=== PATIENT | male | born 1990 | race African-American/Black ===

== ENCOUNTER 2017-03-16 16:42 | Emergency (ER) | payer OTHER ==
[2017-03-16 17:15] VITALS: BP 121/66
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
[2017-03-16] MEDS ORDERED: IBUPROFEN 800 MG TABLET. PO ONE (17:45)
--- NOTE | 2017-03-16 18:58 | RAD ---
PQRS Compliance Statement: One or more of the following individualized dose reduction techniques were utilized for this examination: 1. Automated exposure control 2. Adjustment of the mA and/or kV according to patient size 3. Use of iterative reconstruction technique CT maxillofacial without contrast March 16, 2017 at 6:22 PM INDICATION: Right-sided facial pain, trauma COMPARISON: None TECHNIQUE: Multiple axial CT images of the maxillofacial structures are provided without contrast. Coronal and sagittal reformats are provided. FINDINGS: Evaluation is markedly limited by motion artifact. Visualized portions of the brain parenchyma appear normal. Visualized orbits are normal. Globes are maintained spherical contour. Extraocular muscles are intact. Mild mucosal thickening is noted in the ethmoid air cells. There is moderate mucosal thickening of the right maxillary sinus and mild mucosal thickening of the left maxillary sinus. A small mucus retention cyst is identified in the right sphenoid sinus. Evaluation for fractures is limited. No gross fracture is identified involving the right maxilla. Mandible and upper cervical spine are limited in evaluation. Dentition appear normal. No maxillary or mandibular fracture is identified. The zygoma is intact. Pterygoid plates are intact. Temporomandibular joints are well aligned. IMPRESSION: 1. Evaluation is limited by motion artifact. 2. No definite fracture is identified. 3. Mild to moderate sinus mucosal disease. Recommend correlation with signs and symptoms of sinusitis. Electronically signed by: Leta Engel MD (03/16/2017 6:55 PM) [facility]
--- NOTE | 2017-03-16 19:00 | RAD ---
Right Achilles tendon ultrasound 03/16/2017 at 6:08 PM INDICATION: Achilles tendon pain. COMPARISON: None available TECHNIQUE: Sonographic imaging of the Achilles tendon is performed. FINDINGS: The teres tendon demonstrates normal sonographic echotexture. There is no tear of the Achilles tendon identified. No peritendinous fluid collection. IMPRESSION: Normal appearance of the right Achilles tendon. Electronically signed by: Leta Engel MD (03/16/2017 6:56 PM) [facility]
== END 2017-03-16 19:37 | disposition home or self-care (01) ==
LOC: ER 16:42 → EEVIPCON 16:42 → ER 19:37
DX: M25.571 Pain in right ankle and joints of right foot (principal); R68.84 Jaw pain
CPT/HCPCS: 29515; 70486; 76881; 99284-25